=== PATIENT | male | born 1990 | race Caucasian/White ===

== ENCOUNTER → 2017-07-25 | Outpatient (CLI) | payer OTHER ==
--- NOTE | 2017-07-25 07:48 | US ---
EXAMINATION TYPE: US abdomen complete DATE OF EXAM: 07/25/2017 COMPARISON: NONE CLINICAL HISTORY: R10.13 epigastric Pain. RUQ and epigastric pain x 6 years EXAM MEASUREMENTS: Liver Length: 14.0 cm Gallbladder Wall: 0.2 cm CBD: 0.6 cm Spleen: 14.0 cm Right Kidney: 11.6 x 5.6 x 5.7 cm Left Kidney: 12.9 x 4.5 x 6.2 cm *bowel gas limits exam Pancreas: unable to visualize due to bowel as Liver: wnl Gallbladder: wnl Evidence for sonographic Daniel's sign: no CBD: wnl Spleen: enlarged Right Kidney: wnl Left Kidney: wnl Upper IVC: wnl Abd Aorta: bowel gas limits veiws The liver is homogenous. The intrahepatic portion of the IVC and proximal abdominal aorta are within normal limits. There is no evidence of cholelithiasis. Common bile duct is unremarkable. The visu alized portions of the pancreas are homogenous. Kidneys are symmetric and free of hydronephrosis. N o renal lesions are seen. IMPRESSION: 1. Splenomegaly. Otherwise unremarkable study.
== END | disposition home or self-care (01) ==
LOC: RADUSWWP 06:59
PROVIDERS: ATTEND Family Medicine
DX: R16.1 Splenomegaly, not elsewhere classified (principal)
CPT/HCPCS: 76700

== ENCOUNTER 2021-09-01 18:21 | Emergency (ER) | payer BC, OTHER ==
[2021-09-01 18:28] VITALS: BP 130/88; PULSE 98; RESP 18; TEMP 98.3
--- NOTE | 2021-09-01 18:42 | ED ---
General Adult HPI - General Chief complaint: Psychiatric Symptoms Stated complaint: Anxiety Time Seen by Provider: 09/01/21 18:27 Source: patient, RN notes reviewed, old records reviewed Mode of arrival: EMS Limitations: no limitations - History of Present Illness Initial comments: 30-year-old male presenting for psychiatric evaluation. Patient states he made some suicidal comments while he was having a panic attack. He states he did not mean them and has a lot to live for. He has no suicidal plan. No suicide attempt. Patient is getting in 2 months he has 2 children. He states he is stressed about finances and said some things that he did not mean. No physical complaints. - Related Data Allergies Allergy/AdvReac Type Severity Reaction Status Date / Time ceftriaxone [From Rocephin] AdvReac Nausea Verified 09/01/21 18:41 vancomycin AdvReac Nausea Verified 09/01/21 18:40 Review of Systems ROS Statement: Those systems with pertinent positive or pertinent negative responses have been documented in the HPI. ROS Other: All systems not noted in ROS Statement are negative. General Exam Limitations: no limitations General appearance: alert, in no apparent distress, anxious Head exam: Present: atraumatic, normocephalic Eye exam: Present: normal appearance, PERRL ENT exam: Present: normal exam Neck exam: Present: normal inspection Respiratory exam: Present: normal lung sounds bilaterally. Absent: respiratory distress, wheezes Cardiovascular Exam: Present: regular rate, normal rhythm GI/Abdominal exam: Present: soft. Absent: distended, tenderness Extremities exam: Present: normal inspection, normal capillary refill Neurological exam: Present: alert, oriented X3, CN II-XII intact. Absent: motor sensory deficit Psychiatric exam: Present: anxious. Absent: suicidal ideation Skin exam: Present: warm, dry, intact. Absent: cyanosis, diaphoretic Course Vital Signs 09/01/21 18:24 Temperature 98.3 F Pulse Rate 98 Respiratory 18 Rate Blood Pressure 130/88 O2 Sat by Pulse 97 Oximetry - Reevaluation(s) Reevaluation #1: 09/01/21 18:40 Cleared for EPS. Medical Decision Making - Medical Decision Making Patient evaluated by EPS, felt to be safe for discharge. I agree with this assessment. Patient given resources in the emergency department. He signed a safety plan. He was given 1 mg of oral Ativan for anxiety Disposition Clinical Impression: Depression, Acute anxiety Disposition: HOME SELF-CARE Condition: Fair Instructions (If sedation given, give patient instructions): Anxiety (ED), Depression (ED) Additional Instructions: Please follow up with community mental health. Please return with worsening or changing symptoms. Is patient prescribed a controlled substance at d/c from ED?: No Referrals: None,Stated [Primary Care Provider] - 1-2 days Time of Disposition: 19:30
[2021-09-01] MEDS ORDERED: LORazepam 1 MG TAB PO STA (19:29)
== END 2021-09-01 19:38 | disposition home or self-care (01) ==
LOC: EC 18:21
DX: F41.9 Anxiety disorder, unspecified (principal); F32.A Depression, unspecified; Z88.1 Allergy status to other antibiotic agents
CPT/HCPCS: 82075; 99284